=== PATIENT | male | born 1950 | race Caucasian/White ===

== ENCOUNTER → 2016-11-12 | Outpatient (CLI) | payer MEDICARE, BC | LOC: MW.CHIM 09:30 | PROVIDERS: ATTEND Internal Medicine | DX: E11.9 Type 2 diabetes mellitus without complications (principal) | CPT/HCPCS: 99214 ==

== ENCOUNTER 2018-10-23 12:03 | Emergency (ER) | payer MEDICARE, BC ==
--- NOTE | 2018-10-23 12:11 | EDM.PDOC ---
ED HPI GENERAL MEDICAL PROBLEM - General Chief Complaint: Upper Extremity Injury/Pain Stated Complaint: RIGHT PINKIE FINGER PAIN Time Seen by Provider: 10/23/18 12:11 Source of Information: Reports: Patient - History of Present Illness INITIAL COMMENTS - FREE TEXT/NARRATIVE: HISTORY AND PHYSICAL: History of present illness: [Patient presents with a pink swollen fifth digit to denies trauma painful for him to move the interphalangeal joint, he denies any fever nausea vomiting chills sweats Review of systems: As per history of present illness and below otherwise all systems reviewed and negative. Past medical history: As per history of present illness and as reviewed below otherwise noncontributory. Surgical history: As per history of present illness and as reviewed below otherwise noncontributory. Social history: No reported history of drug or alcohol abuse. Family history: As per history of present illness and as reviewed below otherwise noncontributory. Physical exam: HEENT: Atraumatic, normocephalic, pupils reactive, negative for conjunctival pallor or scleral icterus, mucous membranes moist, throat clear, neck supple, nontender, trachea midline. Lungs: Clear to auscultation, breath sounds equal bilaterally, chest nontender. Heart: S1S2, regular, negative for clicks, rubs, or JVD. Abdomen: Soft, nondistended, nontender. Negative for masses or hepatosplenomegaly. Negative for costovertebral tenderness. Pelvis: Stable nontender. Genitourinary: Deferred. Rectal: Deferred. Extremities: Atraumatic, negative for cords or calf pain. Neurovascular unremarkable. Neuro: Awake, alert, oriented. Cranial nerves II through XII unremarkable. Cerebellum unremarkable. Motor and sensory unremarkable throughout. Exam nonfocal. Skin as per history of present illness Diagnostics: [CBC uric acid Right hand ] Therapeutics: [Keflex 500 by mouth twice a day #20 no refill Indocin 50 mg by mouth 3 times a day when necessary #30 no refill ] Impression: [Cellulitis ] Cannot rule out gout uric acid 6.8 high for national average Definitive disposition and diagnosis as appropriate pending reevaluation and review of above. right 5th digit Pain Score (Numeric/FACES): 5 - Related Data Allergies Allergy/AdvReac Type Severity Reaction Status Date / Time amlodipine Allergy Hives Verified 10/23/18 12:12 azithromycin [From Zithromax] Allergy Rash Verified 10/23/18 12:12 ceftriaxone sodium Allergy Rash Verified 10/23/18 12:12 [From Rocephin] Home Meds: Home Meds Aspirin [[place] Aspirin EC] 81 mg PO WEEKLY 04/23/15 [History] Empagliflozin [Jardiance] 25 mg PO DAILY 04/23/15 [History] Isosorbide Dinitrate 10 mg PO BEDTIME 04/23/15 [History] Losartan/Hydrochlorothiazide [Losartan-HCTZ 100-25 MG] 1 tab PO DAILY 04/23/15 [ History] Metoprolol Succinate [Toprol XL] 100 mg PO BEDTIME 04/23/15 [History] Simvastatin [Zocor] 10 mg PO BEDTIME 04/23/15 [History] buPROPion HCl [Wellbutrin Xl] 150 mg PO BID 04/23/15 [History] cloNIDine HCl [Catapres] 0.3 mg PO BEDTIME 04/23/15 [History] cloNIDine HCl [Catapres] 0.5 tab PO QAM 04/23/15 [History] Dulaglutide [Trulicity] 1.5 mg SQ WEEKLY 07/21/18 [History] Isosorbide Dinitrate 0.5 tab PO QAM 07/21/18 [History] metFORMIN HCl [Metformin HCl] 1,000 mg PO BID 07/21/18 [History] Past Medical History HEENT History: Reports: Other (See Below) Other HEENT History: wears glasses Cardiovascular History: Reports: Heart Murmur, High Cholesterol, Hypertension Gastrointestinal History: Reports: Colon Polyp Genitourinary History: Reports: Renal Calculus Musculoskeletal History: Reports: Fracture Other Musculoskeletal History: hx of fx leg as a child Psychiatric History: Reports: Depression Endocrine/Metabolic History: Reports: Diabetes, Type II - Past Surgical History GI Surgical History: Reports: Colonoscopy Review of Systems - Review of Systems Review Of Systems: See Below ED EXAM, GENERAL - Physical Exam Exam: See Below Course - Vital Signs Last Recorded V/S: Last Vital Signs Temp 97.0 F 10/23/18 12:13 Pulse 74 10/23/18 12:27 Resp 18 10/23/18 12:13 BP 181/98 H 10/23/18 12:27 Pulse Ox 98 10/23/18 12:27 - Orders/Labs/Meds Labs: Laboratory Tests 10/23/18 10/23/18 Range/Units 13:11 13:11 WBC 11.93 H (4.0-11.0) K/uL RBC 5.07 (4.50-5.90) M/uL Hgb 15.1 (13.0-17.0) g/dL Hct 45.4 (38.0-50.0) % MCV 89.5 (80.0-98.0) fL MCH 29.8 (27.0-32.0) pg MCHC 33.3 (31.0-37.0) g/dL RDW Std Deviation 47.3 (28.0-62.0) fl RDW Coeff of [place] 15 (11.0-15.0) % Plt Count 156 (150-400) K/uL MPV 10.60 (7.40-12.00) fL Neut % (Auto) 66.5 (48.0-80.0) % Lymph % (Auto) 20.9 (16.0-40.0) % Travis % (Auto) 7.8 (0.0-15.0) % Eos % (Auto) 4.2 (0.0-7.0) % Baso % (Auto) 0.6 (0.0-1.5) % Neut # (Auto) 7.9 H (1.4-5.7) K/uL Lymph # (Auto) 2.5 H (0.6-2.4) K/uL Travis # (Auto) 0.9 H (0.0-0.8) K/uL Eos # (Auto) 0.5 (0.0-0.7) K/uL Baso # (Auto) 0.1 (0.0-0.1) K/uL Nucleated RBC % 0.0 /100WBC Nucleated RBCs # 0 K/uL Uric Acid 6.8 (2.6-7.2) mg/dL Departure - Departure Time of Disposition: 13:54 Disposition: Home, Self-Care 01 Condition: Good Clinical Impression: Finger pain - Discharge Information Referrals: Miguelangel Apodaca MD [Primary Care Provider] - Forms: ED Department Discharge Additional Instructions: The following information is given to patients seen in the emergency department who are being discharged to home. This information is to outline your options for follow-up care. We provide all patients seen in our emergency department with a follow-up referral. The need for follow-up, as well as the timing and circumstances, are variable depending upon the specifics of your emergency department visit. If you don't have a primary care physician on staff, we will provide you with a referral. We always advise you to contact your personal physician following an emergency department visit to inform them of the circumstance of the visit and for follow-up with them and/or the need for any referrals to a consulting specialist. The emergency department will also refer you to a specialist when appropriate. This referral assures that you have the opportunity for follow-up care with a specialist. All of these measure are taken in an effort to provide you with optimal care, which includes your follow-up. Under all circumstances we always encourage you to contact your private physician who remains a resource for coordinating your care. When calling for follow-up care, please make the office aware that this follow-up is from your recent emergency room visit. If for any reason you are refused follow-up, please contact the [facility] emergency department at and asked to speak to the emergency department charge nurse.
--- NOTE | 2018-10-23 13:02 | CR ---
EXAMINATION: Right hand HISTORY: Swelling COMPARISON: None TECHNIQUE: 3 views FINDINGS: There is no acute osseous abnormality, dislocation, or fracture. Bone mineralization is normal. Mild to moderate osteoarthritic changes noted within the interphalangeal joints of the right hand and first MCP joint. No foreign body or soft tissue swelling. IMPRESSION: Osteoarthritic changes without acute findings.
[2018-10-23 14:08] VITALS: BP 181/91
== END 2018-10-23 14:08 | disposition home or self-care (01) ==
LOC: MW.ED 12:03
DX: L03.011 Cellulitis of right finger (principal); E78.00 Pure hypercholesterolemia, unspecified; I10 Essential (primary) hypertension; E11.9 Type 2 diabetes mellitus without complications; Z88.8 Allergy status to other drugs, medicaments and biological substances; Z79.899 Other long term (current) drug therapy; Z79.82 Long term (current) use of aspirin; Z79.84 Long term (current) use of oral hypoglycemic drugs
CPT/HCPCS: 36415; 73130-26-RT; 73130-RT; 84550; 85025; 99283-25

== ENCOUNTER 2020-05-20 21:30 | Emergency (ER) | payer MEDICARE, BC ==
[2020-05-20] MEDS ORDERED: Sodium Chloride 0.9% 1,000 ML IV ONE (22:48)
[2020-05-20] MEDS ORDERED: Sodium Chloride 0.9% 10 ML Syringe FLUSH PRN (22:48)
[2020-05-20] MEDS ORDERED: Sodium Chloride 0.9% 2.5 ML Syringe FLUSH PRN (22:48)
[2020-05-20] MEDS ORDERED: Acetaminophen 500 MG Tab PO ONE (23:17)
[2020-05-21 00:17] LABS: CARBON DIOXIDE,CO2 25.4 mmol/L (21.0-32.0); POTASSIUM,K 2.8 mmol/L (3.5-5.1)
[2020-05-21] MEDS ORDERED: Potassium Chloride 10% 20 MEQ/15 ML Soln 30 ML UD Cup PO ONE (00:43)
--- NOTE | 2020-05-21 00:52 | CR ---
INDICATION: Cough TECHNIQUE: Chest 2 views COMPARISON: 08/11/2018 FINDINGS: Cardiovascular and mediastinum: Heart size and vasculature are normal in caliber and appearance. Lungs and pleural spaces: Ill-defined right infrahilar opacity. Remainder of the lungs and pleural spaces are clear. No pneumothorax Bones and soft tissues: No significant findings. IMPRESSION: Nonspecific ill-defined right infrahilar opacity. This was also present on the comparison exam and in fact appears improved. Recurrent pneumonia in this location is not definite but possible. Remainder of the chest is unremarkable. Dictated by Valdo Langley MD @ May 21 2020 12:46AM Signed by Dr. Valdo Langley @ May 21 2020 12:50AM
--- NOTE | 2020-05-21 00:54 | CT ---
INDICATION: Confusion TECHNIQUE: CT head without contrast. COMPARISON: None. FINDINGS: CSF spaces: Within normal limits for age. Brain parenchyma and extra-axial spaces: The watson-white differentiation is normal. No sign of mass, hemorrhage, or midline shift. No extra-axial fluid collection. Skull base and calvarium: The visualized paranasal sinuses and mastoid air cells demonstrate no acute or significant findings. The visualized orbits are grossly unremarkable. No skull fractures. IMPRESSION: Unremarkable noncontrast head CT. Please note that all CT scans at this facility use dose modulation, iterative reconstruction, and/or weight-based dosing when appropriate to reduce radiation dose to as low as reasonably achievable. Dictated by Valdo Langley MD @ May 21 2020 12:50AM Signed by Dr. Valdo Langley @ May 21 2020 12:53AM
[2020-05-21] MEDS ORDERED: Azithromycin 250 MG Tab PO ONE (02:52)
--- NOTE | 2020-05-21 02:58 | EDM.PDOC ---
ED HPI GENERAL MEDICAL PROBLEM - General Chief Complaint: Respiratory Problem Stated Complaint: EXPOSED TO COVIC- 19 Time Seen by Provider: 05/20/20 22:21 - History of Present Illness INITIAL COMMENTS - FREE TEXT/NARRATIVE: HISTORY AND PHYSICAL: History of present illness: This is a 69-year-old gentleman who presents ER today secondary to increased confusion, increased cough, and concerns with coronavirus. Patient has a hist ory significant for hypertension, diabetes, asthma, coronary disease. reports that he has a history for a left bundle branch block. Patient denies any recent nausea, vomiting, diarrhea, abdominal pain. Patient reports he has had a nonproductive cough for the last 2 weeks but has been getting worse over the last couple days. Patient denies any recent fevers, shakes, chills. Patient has had decreased p.o. intake over the last 24 hours. Patient denies any dysuria frequency urgency. Patient denies any melena or bright red blood per rectum. Patient's currently at bedside and reports that her greatest concern was his increased confusion. She reports that normally he is extremely alert and sharp however over the last 2 to 3 days he has had increased fatigue, weakness and confusion. She reports that today he was unsure of the date and therefore brought him in for further evaluation. Review of systems: As per history of present illness and below otherwise all systems reviewed and negative. Past medical history: As per history of present illness and as reviewed below otherwise noncontributory. Surgical history: As per history of present illness and as reviewed below otherwise noncontributory. Social history: No reported history of drug or alcohol abuse. Family history: As per history of present illness and as reviewed below otherwise noncontributory. Physical exam: HEENT: Atraumatic, normocephalic, pupils reactive, negative for conjunctival pallor or scleral icterus, mucous membranes moist, throat clear, neck supple, nontender, trachea midline. Lungs: Clear to auscultation, breath sounds equal bilaterally, chest nontender. Heart: S1S2, regular, negative for clicks, rubs, or JVD. Abdomen: Soft, nondistended, nontender. Negative for masses or hepatos plenomegaly. Negative for costovertebral tenderness. Pelvis: Stable nontender. Genitourinary: Deferred. Rectal: Deferred. Extremities: Atraumatic, negative for cords or calf pain. Neurovascular unrema rkable. Neuro: Awake, alert, oriented to person and place but not to year. Patient appears to be somewhat confused on initial evaluation.. Cranial nerves II through XII unremarkable. Cerebellum unremarkable. Motor and sensory unremarkable throughout. Exam nonfocal. Reevaluation at 1:30 AM reveals patient to have significant improvement in his mentation. reports that he is completely back to baseline at this time. Patient has received acetaminophen as well as IV fluids in the ED and she reports she thinks that he might have been dehydrated since he is currently back to baseline. Patient currently is alert awake oriented x3. Patient is aware of his surroundings. Patient is aware who the president is. Patient reports that today was his anniversary with his after 41 years. She reports that his affect and speech is completely normal at this time. Diagnostics: Chest Xray: Normal cardiac silhouette No infiltrates or effusions identified. No PTX No evidence of acute bony fracture. As interpreted by ER MD: Fernando EKG: Normal sinus tachycardia heart rate of [address]-T wave abnormalities Left axis deviation Left bundle branch block No evidence of ST elevation [place] As interpreted by ER physician: Fernando Coronavirus test positive Urinalysis normal CBC within normal limits CMP consistent with hyperkalemia with a potassium of 2.8 Heart rate 84 Pulse ox 98% on room air Therapeutics: Acetaminophen 1 g p.o. K-Dur 40 mg p.o. NSS wide open x2 L IV Assessment and plan: This is a 69-year-old gentleman who presents ER today secondary to increased confusion, fevers x2 to 3 days. Patient's reports that they have had significant coronavirus exposure with her son who is positive. Patient lives with his and 2 kids. Patient's ER work-up initially was concerning secondary to his confusion. Patient CT scan of his head revealed no acute disease. Patient's urinalysis was unremarkable. Patient's chest x-ray reveals questionable infiltrate in retrocardiac region. Patient's coronavirus test is positive. Patient's pulse ox is 98% on room air. Patient is coronavirus positive however at this time he does not not meet criteria for inpatient treatment. Patient will be discharged home. I have discussed this plan with the patient and his and they are in strong agreement with the current plan to go home. Patient will be started on Zithromax to treat possible retrocardiac infiltrate versus scarring. Patient will be encouraged to return to the ED if he has any worsening symptoms especially worsening shortness of breath. Reassessment at the time of disposition demonstrates that the patient is in no acute distress. The patient has remained stable throughout the entire ED visit and is without objective evidence for acute process requiring urgent intervention or hospitalization. The patient is stable for discharge, counseling is provided as documented above, discussed symptomatic treatment and specific conditions for return. I have spoken with the patient/caregiver and discussed todays findings, in addition to providing specific details for the plan of care. Questions are answered and there is agreement with the plan. Definitive disposition and diagnosis as appropriate pending reevaluation and review of above. - Related Data Allergies Allergy/AdvReac Type Severity Reaction Status Date / Time amlodipine Allergy Hives Verified 05/20/20 22:17 azithromycin [From Zithromax] Allergy Rash Verified 05/20/20 22:17 ceftriaxone sodium Allergy Rash Verified 05/20/20 22:17 [From Rocephin] Home Meds: Home Meds Aspirin [[facility] Aspirin EC] 81 mg PO WEEKLY 04/23/15 [History] Empagliflozin [Jardiance] 25 mg PO DAILY 04/23/15 [History] Isosorbide Dinitrate 10 mg PO BEDTIME 04/23/15 [History] Losartan/Hydrochlorothiazide [Losartan-HCTZ 100-25 MG] 1 tab PO DAILY 04/23/15 [History] Metoprolol Succinate [Toprol XL] 100 mg PO BEDTIME 04/23/15 [History] Simvastatin [Zocor] 10 mg PO BEDTIME 04/23/15 [History] buPROPion HCL [Wellbutrin Xl] 150 mg PO BID 04/23/15 [History] cloNIDine HCL [Catapres] 0.3 mg PO BEDTIME 04/23/15 [History] cloNIDine HCL [Catapres] 0.5 tab PO QAM 04/23/15 [History] Dulaglutide [Trulicity] 1.5 mg SQ WEEKLY 07/21/18 [History] Isosorbide Dinitrate 0.5 tab PO QAM 07/21/18 [History] metFORMIN HCl [Metformin HCl] 1,000 mg PO BID 07/21/18 [History] Azithromycin [Zithromax] 250 mg PO DAILY #4 tablet 05/21/20 [Rx] Past Medical History HEENT History: Reports: Other (See Below) Other HEENT History: wears glasses Cardiovascular History: Reports: Heart Murmur, High Cholesterol, Hypertension Gastrointestinal History: Reports: Colon Polyp Genitourinary History: Reports: Renal Calculus Musculoskeletal History: Reports: Fracture Other Musculoskeletal History: hx of fx leg as a child Psychiatric History: Reports: Depression Endocrine/Metabolic History: Reports: Diabetes, Type II - Past Surgical History GI Surgical History: Reports: Colonoscopy Social & Family History - Tobacco Use Tobacco Use Status *Q: Never Tobacco User Second Hand Smoke Exposure: No - Caffeine Use Caffeine Use: Reports: Coffee - Recreational Drug Use Recreational Drug Use: No ED ROS GENERAL - Review of Systems Review Of Systems: See Below ED EXAM, GENERAL - Physical Exam Exam: See Below #1 Interpretation EKG Interpretation Comments: EKG: Normal sinus tachycardia heart rate of [address]-T wave abnormalities Left axis deviation Left bundle branch block No evidence of ST elevation [place] As interpreted by ER physician: Fernando Course - Vital Signs Last Recorded V/S: Last Vital Signs Temp 100.0 F 05/20/20 22:07 Pulse 103 H 05/21/20 01:17 Resp 18 05/21/20 00:48 BP 167/86 H 05/21/20 01:17 Pulse Ox 92 L 05/21/20 01:17 - Orders/Labs/Meds Orders: Active Orders 24 hr Category Date Time Status Cardiac Monitoring [RC] . DIRECTED Care 05/20/20 22:48 Active EKG Documentation Completion [RC] AM Care 05/20/20 22:48 Active Pulse Oximetry [RC] ASDIRECTED Care 05/20/20 22:48 Active CULTURE BLOOD [BC] Stat Lab 05/20/20 23:48 Results CULTURE BLOOD [BC] Stat Lab 05/20/20 23:55 Received Azithromycin [Zithromax] Med 05/21/20 02:52 Once 500 mg PO Q24H ONE Sodium Chloride 0.9% [Saline Flush] Med 05/20/20 22:48 Active 10 ml FLUSH ASDIRECTED PRN Sodium Chloride 0.9% [Saline Flush] Med 05/20/20 22:48 Active 2.5 ml FLUSH ASDIRECTED PRN Blood Culture x2 Reflex Set [OM.PC] Stat Oth 10/13/20 23:17 Ordered Saline Lock Insert [OM.PC] Stat Oth 05/20/20 22:48 Ordered Medication Orders Sodium Chloride (Saline Flush) 10 ml FLUSH ASDIRECTED PRN PRN Reason: Keep Vein Open Last Admin: 05/21/20 00:47 Dose: 10 ml Documented by: [id number] Sodium Chloride (Saline Flush) 2.5 ml FLUSH ASDIRECTED PRN PRN Reason: Keep Vein Open Last Admin: 05/21/20 00:46 Dose: 2.5 ml Documented by: [id number] Labs: Laboratory Tests 05/20/20 05/20/20 05/20/20 Range/Units 23:25 23:40 23:40 WBC 7.56 (4.0-11.0) K/uL RBC 5.38 (4.50-5.90) M/uL Hgb 15.8 (13.0-17.0) g/dL Hct 47.1 (38.0-50.0) % MCV 87.5 (80.0-98.0) fL MCH 29.4 (27.0-32.0) pg MCHC 33.5 (31.0-37.0) g/dL RDW Std Deviation 45.9 (28.0-62.0) fl RDW Coeff of [place] 14 (11.0-15.0) % Plt Count 116 L (150-400) K/uL MPV 11.70 (7.40-12.00) fL Neut % (Auto) 72.3 (48.0-80.0) % Lymph % (Auto) 16.5 (16.0-40.0) % [place] % (Auto) 11.0 (0.0-15.0) % Eos % (Auto) 0.1 (0.0-7.0) % Baso % (Auto) 0.1 (0.0-1.5) % Neut # (Auto) 5.5 (1.4-5.7) K/uL Lymph # (Auto) 1.3 (0.6-2.4) K/uL [place] # (Auto) 0.8 (0.0-0.8) K/uL Eos # (Auto) 0.0 (0.0-0.7) K/uL Baso # (Auto) 0.0 (0.0-0.1) K/uL Nucleated RBC % 0.0 /100WBC Nucleated RBCs # 0 K/uL D-Dimer, Quantitative 0.42 (0.0-0.50) mg/L FEU Lactate (0.20-2.00) mmol/L Sodium 135 L (136-148) mmol/L Potassium 2.8 L (3.5-5.1) mmol/L Chloride 97 L (98-107) mmol/L Carbon Dioxide 25.4 (21.0-32.0) mmol/L BUN 20 H (7.0-18.0) mg/dL Creatinine 1.4 H (0.8-1.3) mg/dL Est Cr Clr Drug Dosing 45.57 mL/min Estimated GFR (MDRD) 50.4 ml/min Glucose 192 H (74-106) mg/dL Calcium 8.5 (8.5-10.1) mg/dL Magnesium 1.6 L (1.8-2.4) mg/dL Total Bilirubin 1.2 H (0.2-1.0) mg/dL AST 20 (15-37) IU/L ALT 20 (14-63) IU/L Alkaline Phosphatase 80 (46-116) U/L B-Natriuretic Peptide (<100) PG/ML Total Protein 7.1 (6.4-8.2) g/dL Albumin 3.6 (3.4-5.0) g/dL Globulin 3.5 (2.6-4.0) g/dL Albumin/Globulin Ratio 1.0 (0.9-1.6) TSH 3rd Generation 1.24 (0.36-3.74) uIU/mL Urine Color Urine Appearance Urine pH (5.0-8.0) Ur Specific [place] (1.001-1.035) Urine Protein (NEGATIVE) mg/dL Urine Glucose (UA) (NEGATIVE) mg/dL Urine Ketones (NEGATIVE) mg/dL Urine Occult Blood (NEGATIVE) Urine Nitrite (NEGATIVE) Urine Bilirubin (NEGATIVE) Urine Urobilinogen (<2.0) EU/dL Ur Leukocyte Esterase (NEGATIVE) Urine RBC (0-2/HPF) Urine WBC (0-5/HPF) Ur Epithelial Cells (NONE-FEW) Amorphous Sediment (NEGATIVE) Urine Bacteria (NEGATIVE) Urine Mucus (NONE-MOD) SARS-CoV-2 RNA (BRANDON) (NEGATIVE) 05/20/20 05/20/20 05/21/20 Range/Units 23:40 23:40 00:50 WBC (4.0-11.0) K/uL RBC (4.50-5.90) M/uL Hgb (13.0-17.0) g/dL Hct (38.0-50.0) % MCV (80.0-98.0) fL MCH (27.0-32.0) pg MCHC (31.0-37.0) g/dL RDW Std Deviation (28.0-62.0) fl RDW Coeff of [place] (11.0-15.0) % Plt Count (150-400) K/uL MPV (7.40-12.00) fL Neut % (Auto) (48.0-80.0) % Lymph % (Auto) (16.0-40.0) % [place] % (Auto) (0.0-15.0) % Eos % (Auto) (0.0-7.0) % Baso % (Auto) (0.0-1.5) % Neut # (Auto) (1.4-5.7) K/uL Lymph # (Auto) (0.6-2.4) K/uL [place] # (Auto) (0.0-0.8) K/uL Eos # (Auto) (0.0-0.7) K/uL Baso # (Auto) (0.0-0.1) K/uL Nucleated RBC % /100WBC Nucleated RBCs # K/uL D-Dimer, Quantitative (0.0-0.50) mg/L FEU Lactate 1.4 (0.20-2.00) mmol/L Sodium (136-148) mmol/L Potassium (3.5-5.1) mmol/L Chloride (98-107) mmol/L Carbon Dioxide (21.0-32.0) mmol/L BUN (7.0-18.0) mg/dL Creatinine (0.8-1.3) mg/dL Est Cr Clr Drug Dosing mL/min Estimated GFR (MDRD) ml/min Glucose (74-106) mg/dL Calcium (8.5-10.1) mg/dL Magnesium (1.8-2.4) mg/dL Total Bilirubin (0.2-1.0) mg/dL AST (15-37) IU/L ALT (14-63) IU/L Alkaline Phosphatase (46-116) U/L B-Natriuretic Peptide 247 H (<100) PG/ML Total Protein (6.4-8.2) g/dL Albumin (3.4-5.0) g/dL Globulin (2.6-4.0) g/dL Albumin/Globulin Ratio (0.9-1.6) TSH 3rd Generation (0.36-3.74) uIU/mL Urine Color Urine Appearance Urine pH (5.0-8.0) Ur Specific [place] (1.001-1.035) Urine Protein (NEGATIVE) mg/dL Urine Glucose (UA) (NEGATIVE) mg/dL Urine Ketones (NEGATIVE) mg/dL Urine Occult Blood (NEGATIVE) Urine Nitrite (NEGATIVE) Urine Bilirubin (NEGATIVE) Urine Urobilinogen (<2.0) EU/dL Ur Leukocyte Esterase (NEGATIVE) Urine RBC (0-2/HPF) Urine WBC (0-5/HPF) Ur Epithelial Cells (NONE-FEW) Amorphous Sediment (NEGATIVE) Urine Bacteria (NEGATIVE) Urine Mucus (NONE-MOD) SARS-CoV-2 RNA (BRANDON) POSITIVE H (NEGATIVE) 05/21/20 Range/Units 02:00 WBC (4.0-11.0) K/uL RBC (4.50-5.90) M/uL Hgb (13.0-17.0) g/dL Hct (38.0-50.0) % MCV (80.0-98.0) fL MCH (27.0-32.0) pg MCHC (31.0-37.0) g/dL RDW Std Deviation (28.0-62.0) fl RDW Coeff of [place] (11.0-15.0) % Plt Count (150-400) K/uL MPV (7.40-12.00) fL Neut % (Auto) (48.0-80.0) % Lymph % (Auto) (16.0-40.0) % [place] % (Auto) (0.0-15.0) % Eos % (Auto) (0.0-7.0) % Baso % (Auto) (0.0-1.5) % Neut # (Auto) (1.4-5.7) K/uL Lymph # (Auto) (0.6-2.4) K/uL [place] # (Auto) (0.0-0.8) K/uL Eos # (Auto) (0.0-0.7) K/uL Baso # (Auto) (0.0-0.1) K/uL Nucleated RBC % /100WBC Nucleated RBCs # K/uL D-Dimer, Quantitative (0.0-0.50) mg/L FEU Lactate (0.20-2.00) mmol/L Sodium (136-148) mmol/L Potassium (3.5-5.1) mmol/L Chloride (98-107) mmol/L Carbon Dioxide (21.0-32.0) mmol/L BUN (7.0-18.0) mg/dL Creatinine (0.8-1.3) mg/dL Est Cr Clr Drug Dosing mL/min Estimated GFR (MDRD) ml/min Glucose (74-106) mg/dL Calcium (8.5-10.1) mg/dL Magnesium (1.8-2.4) mg/dL Total Bilirubin (0.2-1.0) mg/dL AST (15-37) IU/L ALT (14-63) IU/L Alkaline Phosphatase (46-116) U/L B-Natriuretic Peptide (<100) PG/ML Total Protein (6.4-8.2) g/dL Albumin (3.4-5.0) g/dL Globulin (2.6-4.0) g/dL Albumin/Globulin Ratio (0.9-1.6) TSH 3rd Generation (0.36-3.74) uIU/mL Urine Color YELLOW Urine Appearance CLEAR Urine pH 5.5 (5.0-8.0) Ur Specific [place] >= 1.030 (1.001-1.035) Urine Protein 30 H (NEGATIVE) mg/dL Urine Glucose (UA) 250 H (NEGATIVE) mg/dL Urine Ketones 15 H (NEGATIVE) mg/dL Urine Occult Blood TRACE-INTACT H (NEGATIVE) Urine Nitrite NEGATIVE (NEGATIVE) Urine Bilirubin NEGATIVE (NEGATIVE) Urine Urobilinogen 0.2 (<2.0) EU/dL Ur Leukocyte Esterase NEGATIVE (NEGATIVE) Urine RBC 0-2 (0-2/HPF) Urine WBC 0-2 (0-5/HPF) Ur Epithelial Cells FEW (NONE-FEW) Amorphous Sediment LIGHT (NEGATIVE) Urine Bacteria FEW (NEGATIVE) Urine Mucus LIGHT (NONE-MOD) SARS-CoV-2 RNA (BRANDON) (NEGATIVE) Meds: Medications Generic Name Dose Route Start Last Admin Trade Name Freq PRN Reason Stop Dose Admin Sodium Chloride 10 ml 05/20/20 22:48 05/21/20 00:47 Saline Flush FLUSH 10 ml ASDIRECTED PRN Administration Keep Vein Open Sodium Chloride 2.5 ml 05/20/20 22:48 05/21/20 00:46 Saline Flush FLUSH 2.5 ml ASDIRECTED PRN Administration Keep Vein Open Discontinued Medications Generic Name Dose Route Start Last Admin Trade Name Freq PRN Reason Stop Dose Admin Acetaminophen 1,000 mg 05/20/20 23:17 05/20/20 23:57 Tylenol Extra Strength PO 05/20/20 23:18 1,000 mg ONETIME ONE Administration Sodium Chloride 1,000 mls @ 999 mls/hr 05/20/20 22:48 05/20/20 23:57 Normal Saline IV 05/20/20 23:48 999 mls/hr .Bolus ONE Administration Potassium Chloride 40 meq 05/21/20 00:43 05/21/20 00:46 Potassium Chloride PO 05/21/20 00:44 40 meq ONETIME ONE Administration Departure - Departure Time of Disposition: 03:00 Disposition: Home, Self-Care 01 Condition: Good Clinical Impression: Coronavirus infection, Pneumonia, Hypokalemia, Dehydration, COVID-19 virus detected - Discharge Information Instructions: Dehydration, Adult, [id number], Hypokalemia, Community-Acquired Pneumonia, Adult, [id number], COVID-19: How to Protect Yourself and Others - CDC, Prevent the Spread of COVID-19 if You Are Sick - CDC, COVID-19, COVID-19 Frequently Asked Questions Referrals: Miguelangel Apodaca MD [Primary Care Provider] - Additional Instructions: Your evaluation in the ER today revealed that you are positive for coronavirus infection. There is also concern about a possible early pneumonia versus scarring from your prior pneumonia. Currently your oxygen level is 95%. At this time you do not meet criteria for inpatient treatment and would do better with outpatient management of your coronavirus. You will be started on Zithromax to treat possible pneumonia. Please return to the ER immediately if you start having increasing shortness of breath or any new or concerning symptoms. Please make sure you drink plenty of fluids and take acetaminophen 1 g every 6 hours as needed for fevers. Return to the ER if you have any recurrent episodes of confusion. Please make an appointment to follow-up with your doctor within 2 weeks for reevaluation and further recommendations regarding quarantine and isolation. The following information is given to patients seen in the emergency department who are being discharged to home. This information is to outline your options for follow-up care. We provide all patients seen in our emergency department with a follow-up referral. The need for follow-up, as well as the timing and circumstances, are variable depending upon the specifics of your emergency department visit. If you don't have a primary care physician on staff, we will provide you with a referral. We always advise you to contact your personal physician following an emergency department visit to inform them of the circumstance of the visit and for follow-up with them and/or the need for any referrals to a consulting specialist. The emergency department will also refer you to a specialist when appropriate. This referral assures that you have the opportunity for follow-up care with a specialist. All of these measure are taken in an effort to provide you with optimal care, which includes your follow-up. Under all circumstances we always encourage you to contact your private physician who remains a resource for coordinating your care. When calling for follow-up care, please make the office aware that this follow-up is from your recent emergency room visit. If for any reason you are refused follow-up, please contact the [facility] Emergency Department at and asked to speak to the emergency department charge nurse. Sepsis Event Note (ED) - Evaluation Sepsis Screening Result: No Definite Risk - Focused Exam Vital Signs: Vital Signs Temp Pulse Resp BP Pulse Ox 05/21/20 01:17 103 H 167/86 H 92 L 05/21/20 00:48 111 H 18 180/102 H 95 05/20/20 22:07 100.0 F 118 H 18 189/102 H 95 - My Orders Last 24 Hours: My Active Orders 05/20/20 22:48 Cardiac Monitoring [RC] . DIRECTED EKG Documentation Completion [RC] AM Pulse Oximetry [RC] ASDIRECTED Sodium Chloride 0.9% [Saline Flush] 10 ml FLUSH ASDIRECTED PRN Sodium Chloride 0.9% [Saline Flush] 2.5 ml FLUSH ASDIRECTED PRN Saline Lock Insert [OM.PC] Stat 05/20/20 23:17 Blood Culture x2 Reflex Set [OM.PC] Stat 05/20/20 23:48 CULTURE BLOOD [BC] Stat 05/20/20 23:55 CULTURE BLOOD [BC] Stat 05/21/20 02:52 Azithromycin [Zithromax] 500 mg PO Q24H ONE - Assessment/Plan Last 24 Hours: My Active Orders 05/20/20 22:48 Cardiac Monitoring [RC] . DIRECTED EKG Documentation Completion [RC] AM Pulse Oximetry [RC] ASDIRECTED Sodium Chloride 0.9% [Saline Flush] 10 ml FLUSH ASDIRECTED PRN Sodium Chloride 0.9% [Saline Flush] 2.5 ml FLUSH ASDIRECTED PRN Saline Lock Insert [OM.PC] Stat 05/20/20 23:17 Blood Culture x2 Reflex Set [OM.PC] Stat 05/20/20 23:48 CULTURE BLOOD [BC] Stat 05/20/20 23:55 CULTURE BLOOD [BC] Stat 05/21/20 02:52 Azithromycin [Zithromax] 500 mg PO Q24H ONE
[2020-05-21 03:36] VITALS: BP 174/83; PULSE 100
== END 2020-05-21 03:36 | disposition home or self-care (01) ==
LOC: MW.ED 21:30
DX: U07.1 COVID-19 (principal); J12.89 Other viral pneumonia; E87.6 Hypokalemia; E86.0 Dehydration; I10 Essential (primary) hypertension; E78.00 Pure hypercholesterolemia, unspecified; E11.9 Type 2 diabetes mellitus without complications; F32.9 Major depressive disorder, single episode, unspecified; Z88.1 Allergy status to other antibiotic agents; Z88.8 Allergy status to other drugs, medicaments and biological substances; Z79.899 Other long term (current) drug therapy
CPT/HCPCS: 36415; 70450; 71046; 80053; 81001; 83605; 83735; 83880; 84443; 85025; 85379; 87040; 93005; 96360; 96361; 99285; A9270; J7030; U0002; 93010; 99284